=== PATIENT | male | born 1995 | race Caucasian/White ===

== ENCOUNTER → 2021-05-16 | Outpatient (REF) ==
--- NOTE | 2021-05-16 09:47 | REP ---
INDICATION: PAIN COMPARISON: None. TECHNIQUE: AP, lateral, and swimmers views. FINDINGS: Alignment and kyphosis is maintained. Vertebral bodies intact. No acute fracture / compression injury or subluxation. No degenerative changes. Paravertebral soft tissues are normal. IMPRESSION: Normal thoracic spine series. <Electronically signed by Jf Emerson > 05/16/21 0841
--- NOTE | 2021-05-16 09:48 | REP ---
INDICATION: PAIN COMPARISON: None. TECHNIQUE: AP, lateral, bilateral oblique and sunrise views. FINDINGS: The osseous structures and joint spaces are intact and normal. There is no evidence for acute fracture or dislocation. No joint effusion is appreciated. Surrounding soft tissues are unremarkable. No subcutaneous emphysema or radiodense foreign body. IMPRESSION: Normal age-appropriate left knee examination. <Electronically signed by Jf Emerson > 05/16/21 0919
--- NOTE | 2021-05-16 09:50 | REP ---
INDICATION: PAIN COMPARISON: None. TECHNIQUE: AP, lateral, bilateral oblique views right and left foot. FINDINGS: The osseous structures and joint spaces are symmetric, intact and normal. There is no evidence for acute fracture or dislocation. Surrounding soft tissues are unremarkable. No subcutaneous emphysema or radiodense foreign body. IMPRESSION: Symmetric age-appropriate bilateral foot radiograph series. <Electronically signed by Jf Emerson > 05/16/21 0959
--- NOTE | 2021-05-16 09:52 | REP ---
INDICATION: PAIN COMPARISON: None. TECHNIQUE: AP, lateral, bilateral oblique, and coned-down views of the lumbar spine. FINDINGS: Alignment and lordosis maintained. Vertebral bodies are intact. No acute fracture/compression injury or subluxation. Disc spaces are relatively normal/age-appropriate. No obvious spondylolysis or spondylolisthesis. IMPRESSION: Normal age-appropriate lumbosacral Spine series. <Electronically signed by Jf Emerson > 05/16/21 0984
--- NOTE | 2021-05-16 09:53 | REP ---
INDICATION: PAIN COMPARISON: None. TECHNIQUE: AP and lateral views of the right and left tibia/fibula. FINDINGS: The osseous structures and joint spaces are symmetric, intact and normal. There is no evidence for acute fracture or dislocation. Surrounding soft tissues are unremarkable. No subcutaneous emphysema or radiodense foreign body. IMPRESSION: Normal bilateral tibia/fibula radiographs <Electronically signed by Jf Emerson > 05/16/21 0932
--- NOTE | 2021-05-16 09:56 | REP ---
INDICATION: PAIN COMPARISON: None. TECHNIQUE: AP and oblique views of the sternoclavicular joints. FINDINGS: Visualized portions of the sternum and bilateral sternoclavicular joints appear relatively symmetric, intact and age-appropriate. No obvious evidence for acute or healed injury. IMPRESSION: 1. Relatively normal examination. <Electronically signed by Jf Emerson > 05/16/21 0963
--- NOTE | 2021-05-16 10:04 | REP ---
INDICATION: PAIN COMPARISON: None. TECHNIQUE: AP weightbearing view of the right and left knee FINDINGS: The osseous structures, joint spaces and surrounding soft tissues are essentially symmetric and age-appropriate. IMPRESSION: Symmetric age-appropriate appearance. <Electronically signed by Jf Emerson > 05/16/21 1000
== END ==
LOC: M PLAIMG 08:19
PROVIDERS: ATTEND Internal Medicine
DX: M54.6 Pain in thoracic spine (principal); M54.2 Cervicalgia; M54.5 Low back pain; M25.561 Pain in right knee; M25.562 Pain in left knee; M79.672 Pain in left foot; M79.671 Pain in right foot; M25.519 Pain in unspecified shoulder